=== PATIENT | male | born 1965 | race Caucasian/White ===

== ENCOUNTER → 2021-04-04 | Outpatient (CLI) | payer MEDICARE ==
[~2021-04-04] MED LIST: FLOMAX0.4 MG PO; NORCO 5-325 TA1 EACH PO; ZOFRAN4 MG PO
== END ==
LOC: KOH-I 08:24
DX: R10.30 Lower abdominal pain, unspecified (principal); R19.7 Diarrhea, unspecified; M62.838 Other muscle spasm; N28.1 Cyst of kidney, acquired; R11.0 Nausea; R10.13 Epigastric pain; R63.4 Abnormal weight loss; D51.9 Vitamin B12 deficiency anemia, unspecified; R53.83 Other fatigue; R53.81 Other malaise; E87.8 Other disorders of electrolyte and fluid balance, not elsewhere classified
CPT/HCPCS: 74018

== ENCOUNTER → 2021-04-26 | Outpatient (CLI) | payer MEDICARE | LOC: CT 04-11 13:30 | DX: R10.30 Lower abdominal pain, unspecified (principal); R19.7 Diarrhea, unspecified; R10.13 Epigastric pain; R11.0 Nausea; R63.4 Abnormal weight loss; D51.9 Vitamin B12 deficiency anemia, unspecified | CPT/HCPCS: Q9967 ==

== ENCOUNTER → 2021-06-26 | Outpatient (CLI) | payer MEDICARE | LOC: KOH-I 10:41 | DX: R10.30 Lower abdominal pain, unspecified (principal); N20.2 Calculus of kidney with calculus of ureter | CPT/HCPCS: 74018 ==